=== PATIENT | female | born 1995 | race Caucasian/White ===

== ENCOUNTER 2018-07-19 14:32 | Emergency (ER) | payer OTHER ==
[~2018-07-19] VITALS: Wt 47.6 kg
[2018-07-19] MEDS ORDERED: LEVOTHYROXINE50 MCG PO (14:35)
[2018-07-19 15:25] LABS: BASO % 0.3 % (0.0-1.0); EOS # 0.3 10*3/uL (0.0-0.4); EOS % 5.2 % (1.0-4.0); HEMATOCRIT 38.9 % (37.0-47.0); HEMOGLOBIN 12.5 g/dl (12.0-16.0); LYMPH # 1.8 10*3/uL (1.3-4.4); LYMPH % 27.8 % (27.0-41.0); MEAN CELL VOLUME 79.9 fl (81.0-99.0); MEAN CORPUSCULAR HGB 25.7 pg (27.0-31.0); MEAN CORPUSCULAR HGB CONC 32.1 g/dl (33.0-37.0); MEAN PLATELET VOLUME 10.3 fl (9.6-12.3); MONO # 0.5 10*3/uL (0.1-1.0); MONO % 7.9 % (3.0-9.0); NEUT # 3.7 10*3/uL (2.3-7.9); NEUT % 58.6 % (47.0-73.0); PLATELET COUNT AUTOMATED 300 10*3/uL (130-400); RED BLOOD COUNT 4.87 10*6/uL (4.10-5.10); RED CELL DISTRI WIDTH 14.3 % (0-14.5); WHITE BLOOD COUNT 6.3 10*3/uL (4.8-10.8)
[2018-07-19 15:43] LABS: BILIRUBIN NEGATIVE (NEGATIVE); BLOOD NEGATIVE (NEGATIVE); CLARITY CLEAR (CLEAR); COLOR YELLOW (YELLOW); GLUCOSE NEGATIVE (NEGATIVE); KETONE TRACE (NEGATIVE); LEUKO ESTERASE NEGATIVE (NEGATIVE); NITRITE NEGATIVE (NEGATIVE); PH 5.5 (5.0-9.0); SPECIFIC GRAVITY >= 1.030 (1.005-1.030); UROBILINOGEN 0.2 E.U./dl (0.2-1.0)
[2018-07-19 15:43] LABS: ALBUMIN 3.8 gm/dl (3.1-4.5); ALKALINE PHOSPHATASE 106 U/L (45-117); BUN 8 mg/dl (7-24); CHLORIDE 112 mmol/L (98-107); CREATININE 0.69 mg/dL (0.55-1.02); LIPASE 54 U/L (73-393); POTASSIUM 3.9 mmol/L (3.5-5.1); SGOT/AST 24 IU/L (3-35); SGPT/ALT 31 U/L (12-78); SODIUM 139 mmol/L (136-145); TOTAL PROTEIN 7.4 gm/dL (6.4-8.2)
[2018-07-19 15:52] LABS: BACTERIA 2+; EPITHELIAL CELLS TNTC; MUCOUS TRACE; RBC 0-2 rbc/hpf (0-2)
[2018-07-19] MEDS ORDERED: ZOFRAN4 MG PO (16:17)
[2018-07-19] MEDS ORDERED: LOMOTIL 2.5-0.1 EACH PO (16:18)
== END 2018-07-19 16:23 | disposition home or self-care (01) ==
LOC: ED 14:32
PROVIDERS: Nurse Practitioner Family
DX: R19.7 Diarrhea, unspecified (principal); R11.2 Nausea with vomiting, unspecified; Z79.899 Other long term (current) drug therapy

== ENCOUNTER 2018-10-04 11:43 | Emergency (ER) | payer OTHER ==
[~2018-10-04] VITALS: Ht 154.9 cm; Wt 49.9 kg
[~2018-10-04 11:43] MED LIST: LEVOTHYROXINE50 MCG PO; LOMOTIL 2.5-0.1 EACH PO; ZOFRAN4 MG PO
[2018-10-04] MEDS ORDERED: IBU800 MG PO (14:09)
[2018-10-04] MEDS ORDERED: NORCO 5-325 TA1 EACH PO (14:10)
== END 2018-10-04 14:09 | disposition home or self-care (01) ==
LOC: ED 11:43
DX: S82.142A Displaced bicondylar fracture of left tibia, initial encounter for closed fracture (principal); Z79.899 Other long term (current) drug therapy; W20.8XXA Other cause of strike by thrown, projected or falling object, initial encounter; Y93.89 Activity, other specified; Y92.89 Other specified places as the place of occurrence of the external cause; Y99.8 Other external cause status

== ENCOUNTER 2018-11-19 10:39 | Emergency (ER) | payer OTHER ==
[~2018-11-19] VITALS: Ht 154.9 cm; Wt 47.6 kg
[~2018-11-19 10:39] MED LIST changes: +IBU800 MG PO; +NORCO 5-325 TA1 EACH PO
[2018-11-19] MEDS ORDERED: PREDNISONE20 M1 PO (11:30)
== END 2018-11-19 11:44 | disposition home or self-care (01) ==
LOC: ED 10:39
DX: L50.9 Urticaria, unspecified (principal); Z79.899 Other long term (current) drug therapy

== ENCOUNTER → 2019-09-28 | Outpatient (CLI) | payer OTHER ==
[~2019-09-28] MED LIST changes: +PREDNISONE20 M1 PO
== END | disposition home or self-care (01) ==
LOC: US 09-21 17:00
DX: N63.11 Unspecified lump in the right breast, upper outer quadrant (principal)

== ENCOUNTER 2020-03-18 02:21 | Emergency (ER) | payer OTHER ==
[~2020-03-18] VITALS: Wt 47.6 kg
[2020-03-18] MEDS ORDERED: AUGMENTIN 875875 MG PO ×2 (05:37)
== END 2020-03-18 05:48 | disposition home or self-care (01) ==
LOC: ED 02:21
DX: S61.250A Open bite of right index finger without damage to nail, initial encounter (principal); Z79.899 Other long term (current) drug therapy; W55.01XA Bitten by cat, initial encounter; Y93.89 Activity, other specified; Y92.89 Other specified places as the place of occurrence of the external cause; Y99.8 Other external cause status

== ENCOUNTER 2020-03-21 13:56 | Emergency (ER) | payer OTHER ==
[~2020-03-21] VITALS: Ht 154.9 cm; Wt 47.6 kg
[~2020-03-21 13:56] MED LIST changes: +AUGMENTIN 875875 MG PO
== END 2020-03-21 14:45 | disposition home or self-care (01) ==
LOC: ED 13:56
DX: Z23 Encounter for immunization (principal)

== ENCOUNTER 2020-03-25 10:42 | Emergency (ER) | payer OTHER ==
[~2020-03-25] VITALS: Wt 47.6 kg
== END 2020-03-25 11:03 | disposition home or self-care (01) ==
LOC: ED 10:42
DX: Z23 Encounter for immunization (principal)

== ENCOUNTER 2020-04-01 16:36 | Emergency (ER) | payer OTHER ==
[~2020-04-01] VITALS: Ht 154.9 cm; Wt 47.6 kg
== END 2020-04-01 17:38 | disposition home or self-care (01) ==
LOC: ED 16:36
DX: Z23 Encounter for immunization (principal)

== ENCOUNTER 2021-04-03 01:19 | Emergency (ER) | payer BC ==
[~2021-04-03] VITALS: Ht 154.9 cm; Wt 44.5 kg
[2021-04-03 03:10] LABS: BASO # 0.1 10*3/uL (0.0-0.1); BASO % 0.6 % (0.0-1.0); EOS # 0.6 10*3/uL (0.0-0.4); EOS % 7.2 % (1.0-4.0); HEMATOCRIT 41.9 % (37.0-47.0); LYMPH # 2.5 10*3/uL (1.3-4.4); LYMPH % 28.6 % (27.0-41.0); MEAN CELL VOLUME 91.7 fl (81.0-99.0); MEAN CORPUSCULAR HGB 29.5 pg (27.0-31.0); MEAN CORPUSCULAR HGB CONC 32.2 g/dl (33.0-37.0); MEAN PLATELET VOLUME 10.4 fl (9.6-12.3); MONO # 0.5 10*3/uL (0.1-1.0); MONO % 6.1 % (3.0-9.0); NEUT # 4.9 10*3/uL (2.3-7.9); NEUT % 57.4 % (47.0-73.0); PLATELET COUNT AUTOMATED 242 10*3/uL (130-400); RED BLOOD COUNT 4.57 10*6/uL (4.10-5.10); RED CELL DISTRI WIDTH 13.1 % (0-14.5); WHITE BLOOD COUNT 8.6 10*3/uL (4.8-10.8)
[2021-04-03 03:25] LABS: ALBUMIN 3.5 gm/dl (3.1-4.5); ALKALINE PHOSPHATASE 93 U/L (45-117); BUN 11 mg/dl (7-24); CHLORIDE 112 mmol/L (98-107); CREATININE 0.77 mg/dL (0.55-1.02); POTASSIUM 3.7 mmol/L (3.5-5.1); SGOT/AST 16 IU/L (3-35); SGPT/ALT 23 U/L (12-78); SODIUM 142 mmol/L (136-145)
[2021-04-03] MEDS ORDERED: CLEOCIN HCL150 MG PO (05:13)
== END 2021-04-03 06:00 | disposition home or self-care (01) ==
LOC: ED 01:19
PROVIDERS: Hospitalist
DX: L03.213 Periorbital cellulitis (principal)